=== PATIENT | female | born 1995 | race Caucasian/White ===

== ENCOUNTER 2017-11-27 13:46 | Emergency (ER) | payer OTHER ==
[~2017-11-27] VITALS: Ht 167.6 cm; Wt 137.9 kg
[2017-11-27] MEDS ORDERED: METH4TAB2 PO (15:21)
[2017-11-27] MEDS ORDERED: NAPR-683 PO (15:21)
--- NOTE | 2017-11-27 15:23 | PHYS DOC ---
Past History Past Medical History: Anxiety, Depression Past Surgical History: Appendectomy Alcohol Use: Occasionally Drug Use: None Adult General Chief Complaint Chief Complaint: KNEE PAIN HPI HPI Patient is a [22] year old [female] who presents with complaining of left knee pain for 4 days as a constant pain that getting worse with standing and activity without known injury. 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 Patient rated her pain 5/10 and denies focal neuro deficit, fever and chills, nausea and vomiting. Review of Systems Review of Systems Constitutional: Denies fever or chills [] Eyes: Denies change in visual acuity, redness, or eye pain [] HENT: Denies nasal congestion or sore throat [] Respiratory: Denies cough or shortness of breath [] Cardiovascular: No additional information not addressed in HPI [] GI: Denies abdominal pain, nausea, vomiting, bloody stools or diarrhea [] : Denies dysuria or hematuria [] Musculoskeletal: Denies back pain, reports joint pain [] Integument: Denies rash or skin lesions [] Neurologic: Denies headache, focal weakness or sensory changes [] Endocrine: Denies polyuria or polydipsia [] All other systems were reviewed and found to be within normal limits, except as documented in this note. Physical Exam Physical Exam Constitutional: Well developed, well nourished, mild distress, non-toxic appearance, morbidly obese. [] HENT: Normocephalic, atraumatic Eyes: PERRLA, EOMI, conjunctiva normal, no discharge. [] Neck: Normal range of motion, no tenderness, supple, no stridor. [] Cardiovascular:Heart rate regular rhythm, no murmur [] Lungs & Thorax: Bilateral breath sounds clear to auscultation [] Extremities: Left knee without ecchymosis or edema or sign of injury, limited range of motion with pain, no neurovascular deficit, cyanosis, no clubbing, no edema. [] Neurologic: Alert and oriented X 3, normal motor function, normal sensory function, no focal deficits noted. [] Psychologic: Affect normal, judgement normal, mood normal. [] Current Patient Data Vital Signs Vital Signs Date Time Temp Pulse Resp B/P (MAP) Pulse Ox O2 Delivery O2 Flow Rate FiO2 7/24/18 14:05 98.2 96 22 99 Room Air EKG EKG [] Radiology/Procedures Radiology/Procedures [][address] [address] IMAGING REPORT Signed PATIENT: MICHEAL CASTELLON ACCOUNT: [id number] : 1995 LOCATION: ER AGE: 22 SEX: F EXAM STATUS: DEP ER ORD. PHYSICIAN: STEVEN MADRID MD REASON: pain without injury PROCEDURE: KNEE LEFT 3V Left knee, 3 views, 11/27/2017: HISTORY: Knee pain No fracture or dislocation is identified. No significant arthritic change is seen. There is no radiographic evidence of a significant joint effusion. IMPRESSION: No significant left knee abnormality is detected. Electronically signed by: Ander Bonilla MD (11/27/2017 3:46 PM) [facility] DICTATED AND SIGNED BY: ANDER BONILLA MD DATE: 11/27/17 1545 CC: PIERO ROSS MD; STEVEN MADRID MD ~ Course & Med Decision Making Course & Med Decision Making Pertinent Imaging studies reviewed. (See chart for details) Evaluation of patient in ER showed 22-year-old male patient with morbid obesity complaining of left knee pain without injury for 4 days. Patient had unremarkable physical exam and x-ray of knee except for morbid obesity. Patient had a knee brace placement and instructed to continue to use knee brace. Patient instructed to avoid of bearing weight and follow up with work comp. [] Dragon Disclaimer Dragon Disclaimer This electronic medical record was generated, in whole or in part, using a voice recognition dictation system. Departure Departure: Impression: Primary Impression: Sprain of left knee Additional Impression: Morbid obesity Disposition: 01 HOME, SELF-CARE (At 1518) Condition: STABLE Referrals: PIERO ROSS MD (PCP) Patient Instructions: Knee Sprain Additional Instructions: Apply ice on the affected area Follow-up with your primary care physician in 3-5 days Return to ER if not getting better Scripts Methylprednisolone (MEDROL) 4 Mg Tab.ds.pk 1 PKG PO UD, #1 PKG Prov: STEVEN MADRID MD 11/27/17 Naproxen (NAPROSYN) 500 Mg Tablet 1 TAB PO BID, #20 TAB Prov: STEVEN MADRID MD 11/27/17 Problem Qualifiers STEVEN MADRID MD Nov 27, 2017 15:23
[2017-11-27 15:30] VITALS: BP 161/88
--- NOTE | 2017-11-27 15:49 | RAD ---
Left knee, 3 views, 11/27/2017: HISTORY: Knee pain No fracture or dislocation is identified. No significant arthritic change is seen. There is no radiographic evidence of a significant joint effusion. IMPRESSION: No significant left knee abnormality is detected. Electronically signed by: Ander Bonilla MD (11/27/2017 3:46 PM) [facility]
== END 2017-11-27 15:32 | disposition home or self-care (01) ==
LOC: ER 13:46
DX: S83.92XA Sprain of unspecified site of left knee, initial encounter (principal); E66.01 Morbid (severe) obesity due to excess calories; Z68.42 Body mass index [BMI] 45.0-49.9, adult; F41.9 Anxiety disorder, unspecified; F32.9 Major depressive disorder, single episode, unspecified; X58.XXXA Exposure to other specified factors, initial encounter; Y93.89 Activity, other specified; Y99.8 Other external cause status; Y92.89 Other specified places as the place of occurrence of the external cause
CPT/HCPCS: 73562; 99284

== ENCOUNTER → 2019-11-27 | Outpatient (CLI) | payer OTHER ==
[~2019-11-27] MED LIST: METH4TAB2 PO; NAPR-683 PO
--- NOTE | 2019-11-27 09:21 | RAD ---
Complete abdominal ultrasound 11/27/2019 INDICATION: Left upper quadrant pain. COMPARISON STUDY: None Discussion: Ultrasound evaluation of the abdomen was performed. Static images are submitted to PACS. Visualized portions of the pancreas are grossly unremarkable. Visualized portions of the aorta and IVC are grossly unremarkable. Liver is normal in size measuring 16.4 cm longitudinally. Portal venous flows in the normal direction. No focal hepatic lesions are identified and provided imaging. The gallbladder is normal in appearance without evidence of wall thickening, stones, or sludge. Right kidney is normal in appearance measuring 9.7 cm in length. Common bile duct is nondilated measuring 2 mm. There is borderline splenomegaly, with spleen measuring approximately 11.5 cm longitudinally. Left kidney is normal in appearance measuring 10.6 cm in length. IMPRESSION: 1. Borderline splenomegaly 2. Otherwise unremarkable abdominal ultrasound Electronically signed by: Alexander Severino MD (11/27/2019 9:18 AM) [id number]
== END ==
LOC: US 08:48
PROVIDERS: ATTEND Internal Medicine Gastroenterology
DX: R10.13 Epigastric pain (principal); R10.12 Left upper quadrant pain; R19.7 Diarrhea, unspecified
CPT/HCPCS: 76700